=== PATIENT | male | born 1980 | race African-American/Black ===

== ENCOUNTER 2017-03-26 19:57 | Emergency (ER) | payer OTHER ==
[~2017-03-26] VITALS: Ht 180.3 cm; Wt 74.7 kg
[2017-03-26 20:02] VITALS: TEMP 36.7; Ht 180.3 cm; Wt 74.7 kg
[2017-03-26 20:35] LABS: MANUAL MICROSCOPIC REQUIRED? NO; REVIEW REQ? NO; URINE APPEARANCE CLEAR (CLEAR); URINE BILIRUBIN NEG (NEG); URINE COLOR YELLOW; URINE NITRITE NEG (NEG); URINE PH 5.5 (4.5-7.5); URINE SPECIFIC GRAVITY 1.032 (1.000-1.030); UROBILINOGEN NEG (NEG); ZZUR CULT IF INDIC CLEAN CATCH YES
--- NOTE | 2017-03-26 20:47 | EMERGENCY ROOM VISIT NOTE ---
History Report prepared by Alvaro: Renea Greene Under the Supervision of: Dr. Maren Baltazar M.D. First contact with patient: 20:09 Chief Complaint: MENTAL HEALTH EVALUATION Stated Complaint: DEPRESSION,ONE EXTREME TO NEXT,RACING THOUGHTS, History of Present Illness The patient is a 36 year old male who presents to the Emergency Room with complaints of increasing depression and anxiety that began prior to arrival. The patient states that he has had intermittent issues, but states that recently all of the issues have been brought to his attention. He states that he is concerned about aspects regarding his mental health. The patient states that his brother is a physician and reports that his brother feels that he is bipolar. He states that today he is feeling depressed, anxious, stressed, overwhelmed, anger with himself, and states "I wish somebody would hurt me." The patient states that he has anger issues, but denies ever physically hurting anyone. He states that he has struggled with tobacco, alcohol, and cocaine abuse as a way to cope with his problems. The patient states that his brother has noticed his recent abusive tendencies. He states that he has been self- medicating with substances for the past 16 years. The patient states that he is angry with himself for not addressing his issues earlier in his life. The patient states that he feels he wouldn't be in the situation he is in now if he would have addressed his issues earlier. He states that he is having some financial troubles and legal troubles, but states that he does not want to go into detail regarding these troubles. The patient states that today he feels that he is at a breaking point in his life. He denies any suicidal ideation, but states that he needs psychological help. The patient states that his brother has wanted to 302 him. He states that he has had friends go out of his way to help him. The patient does not recall seeing a psychiatrist in the past , but states that he has followed with counselors in the past for his anger issues and substance abuse. He reports a history of a previous suicide attempt 17 years ago. Source of History: patient Onset: prior to arrival Position: other (global) Quality: other (depression and anxiety) Timing: other (increasing) Note: Associated Symptoms: stress, overwhelmed, anger, drug abuse Review of Systems See HPI for pertinent positives & negatives. A total of 10 systems reviewed and were otherwise negative. Past Medical & Surgical Medical Problems: (1) Depressive Disorder Nec (2) Eczema Family History No pertinent family history Social History Smoking Status: Current Every Day Smoker Alcohol Use: occasionally Drug Use: none Marital Status: in relationship Housing Status: lives with family Occupation Status: employed Current/Historical Medications No Active Prescriptions or Reported Meds Allergies Coded Allergies: No Known Allergies (Verified , 03/26/17) Physical Exam Vital Signs Date Time Temp Pulse Resp B/P (MAP) Pulse Ox O2 Delivery O2 Flow Rate FiO2 03/26/17 23:35 76 99/71 98 03/26/17 21:47 96 16 119/73 97 Room Air 03/26/17 20:02 36.7 122 18 130/71 93 Room Air Physical Exam Vital signs reviewed. General: Anxious, tearful male, in no significant distress. HEENT: No scleral icterus, PERRLA, neck supple. Atraumatic. Cardiovascular: Regular rate and rhythm, no extra sounds. Pulmonary: Clear to auscultation bilaterally, normal work of breathing. Abdomen: Soft, nontender, nondistended, positive bowel sounds. Musculoskeletal: Atraumatic, no peripheral edema. Neurologic: Patient awake alert and oriented x 3, full strength in all 4 extremities. Cranial nerves 2 through 12 grossly intact. Skin: Warm, dry, no rash Psych: No suicidal or homicidal ideation, but wishes "somebody would hurt me" Medical Decision & Procedures Laboratory Results 03/26/17 20:38 Red Blood Count 4.53, Mean Corpuscular Volume 98.9, Mean Corpuscular Hemoglobin 33.8, Mean Corpuscular Hemoglobin Concent 34.2, Mean Platelet Volume 9.6, Neutrophils (%) (Auto) 66.7, Lymphocytes (%) (Auto) 22.7, Monocytes (%) (Auto) 10.0, Eosinophils (%) (Auto) 0.2, Basophils (%) (Auto) 0.2, Neutrophils # (Auto ) 4.23, Lymphocytes # (Auto) 1.44, Monocytes # (Auto) 0.63, Eosinophils # (Auto ) 0.01, Basophils # (Auto) 0.01 03/26/17 20:38 Test 03/26/17 20:11 03/26/17 20:38 Urine Color YELLOW Urine Appearance CLEAR (CLEAR) Urine pH 5.5 (4.5-7.5) Urine Specific [place] 1.032 (1.000-1.030) Urine Protein NEG (NEG) Urine Glucose (UA) NEG (NEG) Urine Ketones TRACE (NEG) Urine Occult Blood NEG (NEG) Urine Nitrite NEG (NEG) Urine Bilirubin NEG (NEG) Urine Urobilinogen NEG (NEG) Urine Leukocyte Esterase TRACE (NEG) Urine WBC (Auto) 10-30 /hpf (0-5) Urine RBC (Auto) 0-4 /hpf (0-4) Urine Hyaline Casts (Auto) 1-5 /lpf (0-5) Urine Epithelial Cells (Auto) 5-10 /lpf (0-5) Urine Bacteria (Auto) NEG (NEG) Urine Opiates Screen NEG (NEG) Urine Methadone, Qualitative NEG (NEG) Urine Barbiturates NEG (NEG) Urine Phencyclidine (PCP) Level NEG (NEG) Ur Amphetamine/Methamphetamine NEG (NEG) MDMA (Ecstasy) Screen NEG (NEG) Urine Benzodiazepines Screen NEG (NEG) Urine Cocaine Metabolite NEG (NEG) Urine Marijuana (THC) POS (NEG) White Blood Count 6.33 K/uL (4.8-10.8) Red Blood Count 4.53 M/uL (4.7-6.1) Hemoglobin 15.3 g/dL (14.0-18.0) Hematocrit 44.8 % (42-52) Mean Corpuscular Volume 98.9 fL (80-100) Mean Corpuscular Hemoglobin 33.8 pg (25-34) Mean Corpuscular Hemoglobin Concent 34.2 g/dl (32-36) Platelet Count 184 K/uL (130-400) Mean Platelet Volume 9.6 fL (7.4-10.4) Neutrophils (%) (Auto) 66.7 % Lymphocytes (%) (Auto) 22.7 % Monocytes (%) (Auto) 10.0 % Eosinophils (%) (Auto) 0.2 % Basophils (%) (Auto) 0.2 % Neutrophils # (Auto) 4.23 K/uL (1.4-6.5) Lymphocytes # (Auto) 1.44 K/uL (1.2-3.4) Monocytes # (Auto) 0.63 K/uL (0.11-0.59) Eosinophils # (Auto) 0.01 K/uL (0-0.5) Basophils # (Auto) 0.01 K/uL (0-0.2) RDW Standard Deviation 44.2 fL (36.4-46.3) RDW Coefficient of Variation 12.2 % (11.5-14.5) Immature Granulocyte % (Auto) 0.2 % Immature Granulocyte # (Auto) 0.01 K/uL (0.00-0.02) Anion Gap 7.0 mmol/L (3-11) Est Creatinine Clear Calc Drug Dose 83.8 ml/min Estimated GFR () 81.9 Estimated GFR (Non- 70.7 BUN/Creatinine Ratio 10.0 (10-20) Calcium Level 8.8 mg/dl (8.5-10.1) Total Bilirubin 0.4 mg/dl (0.2-1) Direct Bilirubin 0.1 mg/dl (0-0.2) Aspartate Amino Transf (AST/SGOT) 36 U/L (15-37) Alanine Aminotransferase (ALT/SGPT) 30 U/L (12-78) Alkaline Phosphatase 57 U/L (45-117) Total Protein 7.7 gm/dl (6.4-8.2) Albumin 3.9 gm/dl (3.4-5.0) Thyroid Stimulating Hormone (TSH) 1.020 uIu/ml (0.300-4.500) Salicylates Level < 1.7 mg/dl (2.8-20) Acetaminophen Level 6 ug/ml (10-30) Ethyl Alcohol mg/dL < 3.0 mg/dl (0-3) Laboratory results per my review. ED Course 2016: Past medical records reviewed. The patient was evaluated in room A7. A complete history and physical examination was performed. 2312: I reevaluated the patient and he is doing well. I discussed the exam findings with him and I discussed the treatment plan. He verbalized complete understanding and agreement. He is ready to go home. Medical Decision Differential diagnosis: Etiologies such as mood disorder, infection, hypoglycemia, electrolyte abnormalities, cardiac sources, intracerebral event, toxicologic, neurologic, as well as others were entertained. Blood Pressure Screening: Patient was found to have normal blood pressure on screening and does not require follow-up. Medication Reconciliation: I attest that I have personally reviewed the patient' s current medication list. This patient was evaluated and appeared to be in no significant distress. Physical examination was performed and the patient was medically cleared. He is evaluated by case management who felt the patient was stable for outpatient management. He is not suicidal nor is he homicidal. Patient was advised to stay are clear excessive alcohol or illicit substance abuse. He was given multiple outpatient resources. Patient was advised to follow-up with his primary care physician as soon as possible. The patient will return to the ER for worsening of symptoms or any medical concerns. Impression Primary Impression: Mood disorder Scribe Attestation The scribe's documentation has been prepared under my direction and personally reviewed by me in its entirety. I confirm that the note above accurately reflects all work, treatment, procedures, and medical decision making performed by me. Departure Information Dispostion Home / Self-Care Prescriptions No Active Prescriptions or Reported Meds Referrals No Doctor, Assigned (PCP) Forms HOME CARE DOCUMENTATION FORM, IMPORTANT VISIT INFORMATION Patient Instructions My [facility] Additional Instructions Diagnosis: Mood disorder Please follow-up with outpatient mental health resources as directed by case management. Contact [facility] for any urgent mental health issue Avoid excessive alcohol/substance abuse. Follow-up with a primary care physician as soon as possible. Return to the emergency department for worsening of symptoms or any medical concerns.
[2017-03-26 20:49] LABS: BASO % 0.2 %; BASO ABS # 0.01 K/uL (0-0.2); COMPLETE YES; EOS % 0.2 %; HEMATOCRIT 44.8 % (42-52); IG% 0.2 %; LYMPH % 22.7 %; LYMPH ABS # 1.44 K/uL (1.2-3.4); MEAN CELL VOLUME 98.9 fL (80-100); MEAN CORPUSCULAR HEMOGLOBIN 33.8 pg (25-34); MEAN CORPUSCULAR HGB CONC 34.2 g/dl (32-36); MEAN PLATELET VOLUME 9.6 fL (7.4-10.4); NEUT % 66.7 %; PLATELET COUNT 184 K/uL (130-400); RED BLOOD COUNT 4.53 M/uL (4.7-6.1); WHITE BLOOD COUNT 6.33 K/uL (4.8-10.8)
[2017-03-26 21:11] LABS: BENZODIAZEPINE, URINE NEG (NEG); COCAINE,URINE NEG (NEG); PHENCYCLIDINE, URINE NEG (NEG)
[2017-03-26 21:12] LABS: ACETAMINOPHEN 6 ug/ml (10-30); CREATININE 1.3 mg/dl (0.60-1.40); POTASSIUM 3.9 mmol/L (3.5-5.1)
[2017-03-26 21:23] LABS: THYROID STIMULATING HORMONE 1.02 uIu/ml (0.300-4.500)
[2017-03-26 21:55] LABS: CALCIUM 8.8 mg/dl (8.5-10.1)
[2017-03-26 23:35] VITALS: BP 99/71; PULSE 76; O2SAT 98
[2017-03-27] MEDS ORDERED: MIRT15TA3 PO (16:04)
[2017-03-27] MEDS ORDERED: TRAZ50TA35 PO (16:04)
[2017-03-30 17:38] LABS: SYNTHETIC CANNABINOIDS QL URIN NEGATIVE (Negative)
== END 2017-03-26 23:36 | disposition home or self-care (01) ==
LOC: C.EDB 19:59 → C.EDA 23:36
DX: F39 Unspecified mood [affective] disorder (principal); F17.200 Nicotine dependence, unspecified, uncomplicated; Z91.5 Personal history of self-harm

== ENCOUNTER 2017-03-27 14:51 | Emergency (ER) | payer OTHER ==
[~2017-03-27] VITALS: Ht 180.3 cm; Wt 74.5 kg
[2017-03-27 14:53] VITALS: TEMP 36.5; Ht 180.3 cm; Wt 74.5 kg
--- NOTE | 2017-03-27 15:15 | EMERGENCY ROOM VISIT NOTE ---
History Report prepared by Alvaro: Renea Greene Under the Supervision of: Dr. Jevon Mcqueen M.D. First contact with patient: 14:56 Chief Complaint: MENTAL HEALTH EVALUATION Stated Complaint: MENTAL EVAL History of Present Illness The patient is a 36 year old male who presents to the Emergency Room with complaints of persistent, worsening depression over the past two years. The patient reports intermittent issues over the past several years. He states that in the past he attempted suicide and was 302'd by his brother. The patient states that he has intermittently been on psychiatric medications, reporting that he always took himself off of his medications and would begin to self medicate himself with marijuana, cocaine, alcohol, and tobacco. He states that in 2008 he had legal troubles and went back on his medications. The patient states that he was always calm on the medications. He states that recently he has been in legal trouble again. The patient states that he feels he is on an emotional roller coaster. He states that he was evaluated in the emergency department yesterday for his mental health, but states that he was discharged. The patient states that he now cannot wait to for his insurance to come through and wishes to have a further diagnosis. Today, he denies any suicidal ideation or homicidal ideation. The patient states that his brother believes that he is bipolar. He states that he typically gets 4-5 hours of sleep each night and eats once per day. The patient states that he was last on psychiatric medications in 2008, noting that he was on Remeron and Trazodone. Source of History: patient Onset: past two years Position: other (global) Quality: other (depression) Timing: worsening, other (persistent) Note: Associated Symptoms: denies suicidal or homicidal ideation Review of Systems See HPI for pertinent positives & negatives. A total of 10 systems reviewed and were otherwise negative. Past Medical & Surgical Medical Problems: (1) Depressive Disorder Nec (2) Eczema Family History No pertinent family history Social History Smoking Status: Current Every Day Smoker Alcohol Use: occasionally Drug Use: none Marital Status: in relationship Housing Status: lives with family Occupation Status: employed Current/Historical Medications Scheduled Mirtazapine (Remeron), 1 TAB PO HS Trazodone Hcl (Trazodone), 50 MG PO HS Allergies Coded Allergies: No Known Allergies (Verified , 03/26/17) Physical Exam Vital Signs Date Time Temp Pulse Resp B/P (MAP) Pulse Ox O2 Delivery O2 Flow Rate FiO2 03/27/17 14:53 36.5 77 18 127/65 95 Room Air Physical Exam GENERAL: Patient is in no acute distress. HEENT: No acute trauma, normocephalic atraumatic, mucous membranes moist, no nasal congestion, no scleral icterus. NECK: No stridor, no adenopathy, no meningismus, trachea is midline. LUNGS: Clear to auscultation bilaterally, no wheeze, no rhonchi, breath sounds equal. HEART: Without murmurs gallops or rubs, regular rate and rhythm. ABDOMEN: Soft, nontender, bowel sounds positive, no hernias, no peritonitis. EXTREMITIES: No cyanosis or edema, full range of motion of all the joints without pain or difficulty, no signs for acute trauma. NEUROLOGIC: Oriented x 3, no acute motor or sensory deficits, no focal weakness. SKIN: No rash, no jaundice, no diaphoresis. PSYCH: Cooperative and voluntary denies homicidal or suicidal ideation, admits to crying spells and emotional swings. Medical Decision & Procedures Laboratory Results Test 03/27/17 15:13 03/27/17 15:42 Urine Opiates Screen NEG (NEG) Urine Methadone, Qualitative NEG (NEG) Urine Barbiturates NEG (NEG) Urine Phencyclidine (PCP) Level NEG (NEG) Ur Amphetamine/Methamphetamine NEG (NEG) MDMA (Ecstasy) Screen NEG (NEG) Urine Benzodiazepines Screen NEG (NEG) Urine Cocaine Metabolite NEG (NEG) Urine Marijuana (THC) POS (NEG) Ethyl Alcohol mg/dL < 3.0 mg/dl (0-3) Laboratory results reviewed by me. Medications Administered Medications (Trade) Dose Ordered Sig/Clementina Route Start Time Stop Time Status Last Admin Dose Admin Hydroxyzine HCl (Vistaril Tab) 25 mg NOW STAT PO 03/27/17 15:30 03/27/17 15:31 DC 03/27/17 15:30 25 MG ED Course 1500: The patient was evaluated in room A7. A complete history and physical exam was performed. 1530: Ordered Vistaril 25 mg PO. 1600: Per psych case management, Dr. Chaudhry from psychology recommended restarting the patient on his previous psychiatric medications and follow up as an outpatient. 1606: I reevaluated the patient and he is resting comfortably. I discussed the exam findings with him and I discussed the treatment plan. He verbalized complete understanding and agreement. He is ready to go home. Medical Decision The patient is a 36 year old male who presents to the ED with complaints of depression. Differential diagnoses considered include drug or alcohol abuse, psychosis, bipolar disease, suicidal ideation, thyroid disease, mood disorder. The patient presents with complaints of anxiety and depression. This has been an ongoing issue but has worsened as of late. He is not actively homicidal or suicidal. He was seen yesterday and was felt medically clear, inpatient treatment was not felt necessary. He presents back again today asking for help in some way. The patient's urine tox today does show marijuana, consistent with his history of marijuana use. Alcohol level was undetectable. His exam was unremarkable, he was cooperative and voluntary. The psychiatrist congressional assistant recommended starting the patient on Remeron and Trazodone, he has been on these medicines before with success. During the ER stay, he was given a dose of oral Vistaril, he is doing well and is being discharged. He will be seen as an outpatient, he can return if worsening. Blood Pressure Screening: Patient was found to have normal blood pressure on screening and does not require follow-up. Medication Reconciliation: I attest that I have personally reviewed the patient' s current medication list and he is on no medications. Impression Primary Impression: Mood disorder Scribe Attestation The scribe's documentation has been prepared under my direction and personally reviewed by me in its entirety. I confirm that the note above accurately reflects all work, treatment, procedures, and medical decision making performed by me. Departure Information Dispostion Home / Self-Care Prescriptions Trazodone Hcl (Trazodone) 50 Mg Tab 50 MG PO HS for 30 Days, #30 TAB 2 Refills Prov: Jevon Mcqueen M.D. 03/27/17 Mirtazapine (REMERON) 15 Mg Tab 1 TAB PO HS for 30 Days, #30 TAB 2 Refills Prov: Jevon Mcqueen M.D. 03/27/17 Referrals No Doctor, Assigned (PCP) Forms HOME CARE DOCUMENTATION FORM, IMPORTANT VISIT INFORMATION Patient Instructions My [facility] Additional Instructions start the Remeron and Trazadone as you were on before and as directed return for suicidal thoughts or if things are worsening set up outpt appt with counselor or therapist
[2017-03-27] MEDS ORDERED: hydrOXYzine HCL 25 MG TAB PO STA (15:30)
[2017-03-27 15:55] LABS: BENZODIAZEPINE, URINE NEG (NEG); COCAINE,URINE NEG (NEG); PHENCYCLIDINE, URINE NEG (NEG)
[2017-03-27] MEDS ORDERED: MIRT15TA3 PO (16:04)
[2017-03-27] MEDS ORDERED: TRAZ50TA35 PO (16:04)
[2017-03-27 16:30] VITALS: BP 153/75; PULSE 88; O2SAT 98
== END 2017-03-27 16:31 | disposition home or self-care (01) ==
LOC: C.EDB 14:52 → C.EDA 16:31
DX: F39 Unspecified mood [affective] disorder (principal); F17.200 Nicotine dependence, unspecified, uncomplicated; Z91.5 Personal history of self-harm

== ENCOUNTER 2017-08-31 14:26 | Inpatient (IN) | payer OTHER ==
[~2017-08-31] VITALS: Ht 180.3 cm; Wt 75.1 kg
[~2017-08-31 14:26] MED LIST: MIRT15TA3 PO; TRAZ50TA35 PO
--- NOTE | 2017-08-31 15:52 | EMERGENCY ROOM VISIT NOTE ---
History Report prepared by Alvaro: Akash Sanders Under the Supervision of: Dr. Niyah Ulloa D.O. First contact with patient: 14:46 Chief Complaint: MENTAL HEALTH EVALUATION Stated Complaint: MENTAL ISSUES/SUBSTANCE ABUSE TO COPE History of Present Illness The patient is a 37 year old male who presents to the Emergency Room with complaints of persistent mental health issues over the past few weeks. He says that he has no current concerns about his physical health, and denies any new pain. The patient states that he was on Trazodone and Remeron, but they are clearly not working. He says that he was supposed to have another psych evaluation a few weeks ago but missed it. She states that she was told to come back next month, but that is too long for him to wait, so he decided to come here. The patient notes a history of bipolar, anxiety, and depression. He states that he feels like he is "going crazy", and has had issues with sleeping , as well as lots of stressors in his life. The patient says that he feels like his mind is "5 to 7 TV's and the channels are all changing". He states that he is very hypervigilant, and has had thoughts about hurting himself as well as others. The patient notes that he feels like he is getting followed at times, and hears voices intermittently. The patient says that he smokes cigarettes, drinks alcohol, and occasionally smokes marijuana and uses cocaine. He states that he last used cocaine a week and a half ago. Source of History: patient Onset: Past few weeks Position: other (global - mental health issues) Quality: other (admits to suicidal and homicidal ideations) Timing: worsening Note: Associated symptoms: Denies any new pain. Notes that he is hypervigilant, going "crazy". Hearing voices, thinking people are following him. Review of Systems See HPI for pertinent positives & negatives. A total of 10 systems reviewed and were otherwise negative. Past Medical & Surgical Medical Problems: (1) Depressive Disorder Nec (2) Eczema Family History No pertinent family history Social History Smoking Status: Current Every Day Smoker Alcohol Use: occasionally Drug Use: cocaine, marijuana Marital Status: in relationship Housing Status: lives with family Occupation Status: employed Current/Historical Medications Scheduled Mirtazapine (Remeron), 1 TAB PO HS Miscellaneous Medications Trazodone Hcl (Trazodone), 50 MG PO Allergies Coded Allergies: No Known Allergies (Verified , 08/31/17) Physical Exam Vital Signs Date Time Temp Pulse Resp B/P (MAP) Pulse Ox O2 Delivery O2 Flow Rate FiO2 08/31/17 17:52 67 20 105/55 97 Room Air 08/31/17 14:35 36.9 95 18 103/67 98 Room Air Physical Exam GENERAL: alert, well appearing, well nourished, no distress, non-toxic EYE EXAM: normal conjunctiva, PERRL and EOM's grossly intact OROPHARYNX: no exudate, no erythema, lips, buccal mucosa, and tongue normal and mucous membranes are moist NECK: supple, no nuchal rigidity, no adenopathy, non-tender LUNGS: Clear to auscultation. Normal chest wall mechanics HEART: no murmurs, S1 normal and S2 normal ABDOMEN: abdomen soft, non-tender, normo-active bowel sounds, no masses, no rebound or guarding. BACK: Back is symmetrical on inspection and there is no deformity, no midline tenderness, no CVA tenderness. SKIN: no rashes and no bruising UPPER EXTREMITIES: upper extremities are grossly normal. LOWER EXTREMITIES: No pitting edema. NEURO EXAM: Normal sensorium, cranial nerves II-XII grossly intact, normal speech, no gross weakness of arms, no gross weakness of legs. PSYCH: Positive suicidal ideation, positive homicidal ideation, positive hallucinations, positive paranoia. Medical Decision & Procedures Laboratory Results 08/31/17 16:21 Red Blood Count 4.53, Mean Corpuscular Volume 99.6, Mean Corpuscular Hemoglobin 33.1, Mean Corpuscular Hemoglobin Concent 33.3, Mean Platelet Volume 9.2, Neutrophils (%) (Auto) 66.4, Lymphocytes (%) (Auto) 22.9, Monocytes (%) (Auto) 9.7, Eosinophils (%) (Auto) 0.6, Basophils (%) (Auto) 0.3, Neutrophils # (Auto) 4.67, Lymphocytes # (Auto) 1.61, Monocytes # (Auto) 0.68, Eosinophils # (Auto) 0.04, Basophils # (Auto) 0.02 08/31/17 16:21 Test 08/31/17 14:50 08/31/17 16:21 Urine Color YELLOW Urine Appearance CLEAR (CLEAR) Urine pH 7.0 (4.5-7.5) Urine Specific [place] 1.029 (1.000-1.030) Urine Protein NEG (NEG) Urine Glucose (UA) NEG (NEG) Urine Ketones NEG (NEG) Urine Occult Blood NEG (NEG) Urine Nitrite NEG (NEG) Urine Bilirubin NEG (NEG) Urine Urobilinogen NEG (NEG) Urine Leukocyte Esterase NEG (NEG) Urine Opiates Screen NEG (NEG) Urine Methadone, Qualitative NEG (NEG) Urine Barbiturates NEG (NEG) Urine Phencyclidine (PCP) Level NEG (NEG) Ur Amphetamine/Methamphetamine NEG (NEG) MDMA (Ecstasy) Screen NEG (NEG) Urine Benzodiazepines Screen NEG (NEG) Urine Cocaine Metabolite POS (NEG) Urine Marijuana (THC) POS (NEG) White Blood Count 7.03 K/uL (4.8-10.8) Red Blood Count 4.53 M/uL (4.7-6.1) Hemoglobin 15.0 g/dL (14.0-18.0) Hematocrit 45.1 % (42-52) Mean Corpuscular Volume 99.6 fL (80-100) Mean Corpuscular Hemoglobin 33.1 pg (25-34) Mean Corpuscular Hemoglobin Concent 33.3 g/dl (32-36) Platelet Count 158 K/uL (130-400) Mean Platelet Volume 9.2 fL (7.4-10.4) Neutrophils (%) (Auto) 66.4 % Lymphocytes (%) (Auto) 22.9 % Monocytes (%) (Auto) 9.7 % Eosinophils (%) (Auto) 0.6 % Basophils (%) (Auto) 0.3 % Neutrophils # (Auto) 4.67 K/uL (1.4-6.5) Lymphocytes # (Auto) 1.61 K/uL (1.2-3.4) Monocytes # (Auto) 0.68 K/uL (0.11-0.59) Eosinophils # (Auto) 0.04 K/uL (0-0.5) Basophils # (Auto) 0.02 K/uL (0-0.2) RDW Standard Deviation 46.3 fL (36.4-46.3) RDW Coefficient of Variation 12.7 % (11.5-14.5) Immature Granulocyte % (Auto) 0.1 % Immature Granulocyte # (Auto) 0.01 K/uL (0.00-0.02) Anion Gap 5.0 mmol/L (3-11) Est Creatinine Clear Calc Drug Dose 79.9 ml/min Estimated GFR () 77.0 Estimated GFR (Non- 66.5 BUN/Creatinine Ratio 8.0 (10-20) Calcium Level 8.5 mg/dl (8.5-10.1) Total Bilirubin 0.4 mg/dl (0.2-1) Direct Bilirubin 0.1 mg/dl (0-0.2) Aspartate Amino Transf (AST/SGOT) 37 U/L (15-37) Alanine Aminotransferase (ALT/SGPT) 31 U/L (12-78) Alkaline Phosphatase 58 U/L (45-117) Total Protein 7.2 gm/dl (6.4-8.2) Albumin 3.6 gm/dl (3.4-5.0) Thyroid Stimulating Hormone (TSH) 0.926 uIu/ml (0.300-4.500) Ethyl Alcohol mg/dL < 3.0 mg/dl (0-3) Laboratory results per my review. Medications Administered Medications (Trade) Dose Ordered Sig/[place] Route Start Time Stop Time Status Last Admin Dose Admin Lorazepam (Ativan Tab) 1 mg NOW STAT SL 08/31/17 16:45 08/31/17 16:58 DC 08/31/17 17:06 1 MG Nicotine (Nicoderm Cq 21MG Patch) 1 patch NOW STAT TD 08/31/17 16:45 08/31/17 16:58 DC 08/31/17 17:07 1 PATCH ED Course 1539: The patient was evaluated in room A6. A complete history and physical exam was performed. 1645: Ordered Nicoderm Cq 21MG Patch 1 patch TD, Ativan Tab 1 mg SL. 191: I was notified that the patient was accepted to [address] for further mental health evaluation and treatment. The patient is agreeable with the plan. Medical Decision Differential diagnosis: Etiologies such as mood disorder, infection, hypoglycemia, electrolyte abnormalities, cardiac sources, intracerebral event, toxicologic, neurologic, as well as others were entertained. Medication Reconcilliation Current Medication List: was personally reviewed by me Blood Pressure Screening Patient's blood pressure: Normal blood pressure Impression Primary Impression: Psychosis Additional Impressions: Substance abuse Depression Scribe Attestation The scribe's documentation has been prepared under my direction and personally reviewed by me in its entirety. I confirm that the note above accurately reflects all work, treatment, procedures, and medical decision making performed by me. Departure Information Dispostion Mental Health Acute Care (to [address] [place] [address]) Referrals No Doctor, Assigned (PCP) Patient Instructions My [facility] Problem Qualifiers
[2017-08-31 16:26] LABS: URINE APPEARANCE CLEAR (CLEAR); URINE BILIRUBIN NEG (NEG); URINE COLOR YELLOW; URINE NITRITE NEG (NEG); URINE SPECIFIC GRAVITY 1.029 (1.000-1.030); UROBILINOGEN NEG (NEG)
[2017-08-31 16:31] LABS: MANUAL MICROSCOPIC REQUIRED? NO; REVIEW REQ? NO
[2017-08-31 16:34] LABS: BASO % 0.3 %; BASO ABS # 0.02 K/uL (0-0.2); COMPLETE YES; EOS % 0.6 %; HEMATOCRIT 45.1 % (42-52); IG% 0.1 %; LYMPH % 22.9 %; LYMPH ABS # 1.61 K/uL (1.2-3.4); MEAN CELL VOLUME 99.6 fL (80-100); MEAN CORPUSCULAR HEMOGLOBIN 33.1 pg (25-34); MEAN CORPUSCULAR HGB CONC 33.3 g/dl (32-36); MEAN PLATELET VOLUME 9.2 fL (7.4-10.4); MONO % 9.7 %; NEUT % 66.4 %; PLATELET COUNT 158 K/uL (130-400); RED BLOOD COUNT 4.53 M/uL (4.7-6.1); WHITE BLOOD COUNT 7.03 K/uL (4.8-10.8)
[2017-08-31] MEDS ORDERED: NICOTINE 21 MG/24 HR TDSY TD STA (16:45)
[2017-08-31] MEDS ORDERED: LORAZEPAM 1 MG TAB SL STA (16:45)
[2017-08-31 16:52] LABS: CALCIUM 8.5 mg/dl (8.5-10.1); CREATININE 1.36 mg/dl (0.60-1.40); POTASSIUM 4.4 mmol/L (3.5-5.1)
[2017-08-31 17:03] LABS: THYROID STIMULATING HORMONE 0.926 uIu/ml (0.300-4.500)
[2017-08-31 17:44] LABS: BENZODIAZEPINE, URINE NEG (NEG); COCAINE,URINE POS (NEG); PHENCYCLIDINE, URINE NEG (NEG)
[2017-08-31] MEDS ORDERED: TRAZ50TA35 PO (18:50)
[2017-08-31] MEDS ORDERED: MIRT15TA3 PO (18:50)
[2017-08-31] MEDS ORDERED: SODIUM CHLORIDE 0.65% NA SOLN 45 ML (OCEAN) PRN (19:00)
[2017-08-31] MEDS ORDERED: hydrOXYzine HCL 25 MG TAB PO PRN ×2 (19:00)
[2017-08-31] MEDS ORDERED: BISMUTH SUBSALICYLATE PER ML OMNICELL CHARGE PO PRN (19:00)
[2017-08-31] MEDS ORDERED: MAGNESIUM HYDROXIDE SUSP 30 ML UDC PO PRN (19:00)
[2017-08-31] MEDS ORDERED: RISPERIDONE ODT 1MG PO PRN (19:00)
[2017-08-31] MEDS ORDERED: ACETAMINOPHEN 325 MG TAB PO PRN (19:00)
[2017-08-31] MEDS ORDERED: ALUMINUM/MAGNESIUM SUSP 30 ML UDC PO PRN (19:00)
[2017-08-31 19:15] VITALS: O2SAT 99
[2017-08-31 20:01] VITALS: BP 125/63; TEMP 36.9; BMI 23.1
[2017-08-31] MEDS ORDERED: INFLUENZA VIRUS QUAD VACCINE 0.5 ML SYR IM. ONE (21:30)
[2017-08-31] MEDS ORDERED: INFLUENZA ADMINISTRATION CHARGE ONE (21:30)
[2017-08-31] MEDS ORDERED: MIRTAZAPINE TAB 15 MG TAB PO SCH (22:00)
[2017-08-31] MEDS: TRAZODONE HCL 50 MG TAB PO SCH (22:03)
[2017-09-01 06:40] VITALS: BP_SYST 103; BP_SYST 83; BP_DIAS 47; BP_DIAS 68; PULSE 53; PULSE 66; TEMP 36.7
[2017-09-01 08:39] LABS: CHOLESTEROL/HDL RATIO 1.7
[2017-09-01] MEDS ORDERED: BENZTROPINE MESYLATE 1 MG TAB PO PRN (10:15)
[2017-09-01] MEDS ORDERED: LORAZEPAM 1 MG TAB PO PRN (10:15)
[2017-09-01] MEDS ORDERED: HALOPERIDOL 5 MG TAB PO PRN (10:15)
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
[2017-09-01 13:57] VITALS: BP 112/74; PULSE 93; TEMP 37
[2017-09-01 17:17] VITALS: BP 107/74; PULSE 75; TEMP 36.5
[2017-09-01] MEDS: TRAZODONE HCL 50 MG TAB PO SCH (21:35)
[2017-09-01 21:39] VITALS: BP 102/66; PULSE 73; TEMP 36.9
[2017-09-01] MEDS ORDERED: RISPERIDONE ODT 1MG PO SCH (22:00)
[2017-09-02 07:04] VITALS: BP 94/58; PULSE 67; TEMP 36.8
[2017-09-02 08:15] VITALS: BP 94/58; PULSE 67; TEMP 36.8
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
[2017-09-02] MEDS: RISPERIDONE ODT 1MG PO SCH ×2 (09:12→22:41)
[2017-09-02 12:34] VITALS: BP 98/56; PULSE 69; TEMP 36.6
[2017-09-02 17:49] VITALS: BP 103/55; PULSE 84; TEMP 37
[2017-09-02 20:56] VITALS: BP 120/69; PULSE 81; TEMP 36.6
[2017-09-02] MEDS: TRAZODONE HCL 50 MG TAB PO SCH (22:41)
[2017-09-02 23:21] VITALS: Ht 180.3 cm; Wt 75.1 kg
[2017-09-03 06:59] VITALS: BP_SYST 106; BP_SYST 95; BP_DIAS 55; BP_DIAS 67; PULSE 60; PULSE 81; TEMP 36.8
[2017-09-03] MEDS: RISPERIDONE ODT 1MG PO SCH ×2 (09:17→22:55)
[2017-09-03 09:34] VITALS: BP 106/67; PULSE 60; PULSE 81; TEMP 36.8
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
[2017-09-03] MEDS: TRAZODONE HCL 50 MG TAB PO SCH (22:55)
[2017-09-04 06:55] VITALS: BP_SYST 101; BP_SYST 97; BP_DIAS 54; BP_DIAS 59; PULSE 58; PULSE 75; TEMP 36.5
[2017-09-04] MEDS: RISPERIDONE ODT 1MG PO SCH ×2 (08:42→23:00)
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
[2017-09-04] MEDS: TRAZODONE HCL 50 MG TAB PO SCH (22:59)
[2017-09-05 08:04] VITALS: BP_SYST 96; BP_SYST 97; BP_DIAS 52; BP_DIAS 61; PULSE 67; PULSE 83; TEMP 37
[2017-09-05] MEDS: RISPERIDONE ODT 1MG PO SCH ×2 (08:44→23:01)
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
[2017-09-05] MEDS: TRAZODONE HCL 50 MG TAB PO SCH (23:01)
[2017-09-06 06:35] VITALS: BP_SYST 120; BP_SYST 124; BP_DIAS 75; BP_DIAS 76; PULSE 72; PULSE 80; TEMP 36.7
[2017-09-06] MEDS: RISPERIDONE ODT 1MG PO SCH (08:40)
[2017-09-06] MEDS ORDERED: hydrOXYzine HCL 25 MG TAB PO PRN (09:15)
[2017-09-06] MEDS ORDERED: hydrOXYzine HCL 25 MG TAB PO SCH (09:15)
[2017-09-06] MEDS ORDERED: TRAZODONE HCL 100 MG TAB PO SCH ×2 (09:30→22:00)
[2017-09-06] MEDS ORDERED: RISPERIDONE 2 MG TAB PO SCH ×2 (09:30→22:00)
[2017-09-06] MEDS ORDERED: ATR25 PO (10:02)
[2017-09-06] MEDS ORDERED: RSP2 PO (10:02)
[2017-09-06] MEDS ORDERED: TRAZ50TA35 PO (10:02)
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
[2017-09-06] MEDS ORDERED: NICOTINE 14 MG/24 HR TDSY TD SCH (11:30)
[2017-09-06 23:00] LABS: COCAINE, URINE 1450 NG/ML (CUTOFF=100)
== END 2017-09-06 11:50 | disposition home or self-care (01) | DRG 885 ==
LOC: C.EDB 14:33 → C.MHU 19:20 → ENRESERV 19:20
PROVIDERS: ADMIT Psychiatry & Neurology Child & Adolescent Psychiatry; ATTEND Psychiatry & Neurology Child & Adolescent Psychiatry
DX: F39 Unspecified mood [affective] disorder (principal); G89.21 Chronic pain due to trauma; F10.10 Alcohol abuse, uncomplicated; F17.200 Nicotine dependence, unspecified, uncomplicated; F12.10 Cannabis abuse, uncomplicated; Z79.899 Other long term (current) drug therapy